=== PATIENT | male | born 1995 | race Caucasian/White ===

== ENCOUNTER 2017-09-10 19:54 | Emergency (ER) | payer SELFPAY ==
[2017-09-10] MEDS ORDERED: Bacitracin pkt 1 gm Pkt TP ONE (22:39)
--- NOTE | 2017-09-11 08:11 | Diagnostic Imaging Report ---
CT scan of the brain without contrast History: Status post fall Total DLP equals 656 CTDI equals 35.8 Axial sections were obtained from the base of the skull to the vertex. There is a normal ventricular system size. No focal parenchymal lesions are seen. No evidence of any mass effect or shift of midline structures. No extra-axial masses or abnormal fluid collections. Impression: Negative examination
--- NOTE | 2017-10-08 23:14 | ER Physician Documentation ---
DATE OF SERVICE: 09/10/2017 TIME: 8:30 p.m. CHIEF COMPLAINT: Left eyebrow laceration. HISTORY OF PRESENT ILLNESS: This is a 21-year-old male who was brought from [facility] after the patient sustained a laceration to his left eyebrow because of aggressive behavior. The patient was on 5150 hold by [facility]. The patient was medicated with Haldol, Ativan, and Benadryl 6 hours prior as per report. Currently, the patient at the Emergency Room was stable and denies any discomfort. He is arousable from sedation because of the previous medication given. The patient was able to answer questions. PAST MEDICAL HISTORY: Has asthma. PAST SURGICAL HISTORY: The patient denied. SOCIAL HISTORY: The patient is a current everyday smoker and denies alcohol or tobacco use. REVIEW OF SYSTEMS: HEENT: Head: The patient denies headache, however the patient has laceration. No ear pain. No visual change. No neck pain. CHEST: No shortness of breath. GASTROINTESTINAL: No nausea. No vomiting. EXTREMITIES: Moves all 4 extremities. NEUROLOGIC: No focal deficits. PHYSICAL EXAMINATION: VITAL SIGNS: Temperature 98.3, blood pressure 132/74, pulse 72, respiratory rate 18, oxygen saturation 97 on room air. HEENT: Head: There was a 2 cm laceration to the left eyebrow with a superficial laceration to the level of subcutaneous. Pupils equal, round and reactive to light. NECK: No nuchal rigidity. CHEST: Clear to auscultation bilaterally. HEART: S1, S2 and no murmurs. ABDOMEN: Soft, nontender, nondistended. EXTREMITIES: Moves all 4 extremities. NEUROLOGIC: No focal neurologic deficits. ASSESSMENT: Left eyebrow laceration. PLAN: Laceration repair. PROCEDURE: After the wound was cleared with normal saline hydrogen peroxide and Betadine and properly draped, 1% lidocaine without epinephrine was injected to achieve local anesthesia. Subsequently, 6-0 Prolene sutures was placed using interrupted simple sutures. Totally, 6 sutures was placed. In addition, a head CT was ordered. The CT result was negative for any acute intracranial abnormality. On discharge, first DTaP vaccine was given to the patient. Secondly Rocephin 1 gram IM was given to the patient and third the patient is stable to be discharged back to the care facility. The patient will follow up with primary care physician for suture removal in 7 days. JOB# [id number]
== END 2017-09-10 23:44 | disposition home or self-care (01) ==
LOC: ER 19:54
DX: S01.112A Laceration without foreign body of left eyelid and periocular area, initial encounter (principal); J45.909 Unspecified asthma, uncomplicated; X58.XXXA Exposure to other specified factors, initial encounter; Y93.89 Activity, other specified; Y92.89 Other specified places as the place of occurrence of the external cause; Y99.8 Other external cause status
CPT/HCPCS: 99284; 96372; 12011; 70450; 90715; J0696; Z7502; Z7610